=== PATIENT | male | born 1970 | race Caucasian/White ===

== ENCOUNTER 2017-10-29 13:40 | Emergency (ER) | payer OTHER ==
[~2017-10-29] VITALS: Ht 175.3 cm; Wt 77.1 kg
[2017-10-29] MEDS ORDERED: ALLOPURINOL 10100 M1 PO (13:54)
[2017-10-29] MEDS ORDERED: ALPRAZOLAM 0.50.5 M1 PO (13:54)
[2017-10-29] MEDS ORDERED: AUGMENTIN 875-1 EACH PO (14:09)
[2017-10-29] MEDS ORDERED: BACTRIM DS TAB1 EACH PO (14:19)
[2017-10-29 14:44] VITALS: BP 151/93
== END 2017-10-29 14:45 | disposition home or self-care (01) ==
LOC: M.ERS 13:40
DX: S60.512A Abrasion of left hand, initial encounter (principal); S81.851A Open bite, right lower leg, initial encounter; R03.0 Elevated blood-pressure reading, without diagnosis of hypertension; M10.9 Gout, unspecified; Z86.14 Personal history of Methicillin resistant Staphylococcus aureus infection; W55.01XA Bitten by cat, initial encounter; Y93.89 Activity, other specified; Y92.89 Other specified places as the place of occurrence of the external cause; Y99.8 Other external cause status

== ENCOUNTER 2018-01-18 22:24 | Emergency (ER) | payer OTHER ==
[~2018-01-18] VITALS: Ht 175.3 cm; Wt 72.6 kg
[~2018-01-18 22:24] MED LIST: ALLOPURINOL 10100 M1 PO; ALPRAZOLAM 0.50.5 M1 PO; AUGMENTIN 875-1 EACH PO; BACTRIM DS TAB1 EACH PO
[2018-01-18 23:06] LABS: HEMATOCRIT 38.6 % (42.0-52.0); HEMOGLOBIN 12.9 gm/dL (14.0-18.0); MCH 30.6 pg (26.0-34.0); MCHC 33.5 g/dL (28.0-37.0); MCV 91.5 fL (80.0-100.0); MPV 6.8 fl. (7.2-11.1); RBC 4.22 mil/uL (4.50-6.00); RDW-CV 14.3 % (10.5-14.5); WBC 5.5 thou/uL (4.0-11.0)
[2018-01-18 23:18] LABS: CALCIUM 8.7 mg/dL (8.5-10.1); CREATININE 1.3 mg/dL (0.6-1.3); POTASSIUM 3.4 mmol/L (3.5-5.1)
[2018-01-18 23:22] LABS: ALBUMIN 3.3 g/dL (3.4-5.0); SALICYLATE < 2.8 mg/dL (2.8-20.0); TOTAL BILIRUBIN 0.4 mg/dL (<0.1-1.0)
[2018-01-18 23:25] LABS: ACETAMINOPHEN < 2 ug/mL (10-30); ALCOHOL < 10 mg/dL (<10)
[2018-01-19 03:02] LABS: AMP/METHAMP POSITIVE (Negative); BARBITURATES Negative (Negative); BENZODIAZEPINES POSITIVE (Negative); COCAINE Negative (Negative); METHADONE Negative (Negative); OPIATES Negative (Negative); PCP Negative (Negative); THC POSITIVE (Negative)
[2018-01-19 03:05] LABS: URINE BILIRUBIN NEGATIVE (Negative); URINE BLOOD NEGATIVE (Negative); URINE CLARITY CLEAR; URINE COLOR YELLOW; URINE GLUCOSE-RANDOM NEGATIVE (Negative); URINE KETONES NEGATIVE (Negative); URINE LEUKOCYTES NEGATIVE (Negative); URINE NITRITE NEGATIVE (Negative); URINE PROTEIN NEGATIVE (Negative); URINE SPECIFIC GRAVITY >= 1.030 (1.005-1.030)
[2018-01-19 07:16] VITALS: BP 149/90
== END 2018-01-19 07:23 | disposition home or self-care (01) ==
LOC: M.ERS 22:24
PROVIDERS: Personal Emergency Response Attendant
DX: F32.9 Major depressive disorder, single episode, unspecified (principal); F41.9 Anxiety disorder, unspecified; M10.9 Gout, unspecified; Z86.14 Personal history of Methicillin resistant Staphylococcus aureus infection

== ENCOUNTER 2018-04-01 04:37 | Emergency (ER) | payer OTHER ==
[~2018-04-01] VITALS: Ht 175.3 cm; Wt 73.5 kg
[2018-04-01] MEDS ORDERED: MOBIC15 MG PO (06:15)
[2018-04-01] MEDS ORDERED: ULTRAM 50MG TAB50 MG PO (06:15)
[2018-04-01 06:28] VITALS: BP 138/93
== END 2018-04-01 06:31 | disposition home or self-care (01) ==
LOC: M.ERS 04:37
DX: M19.90 Unspecified osteoarthritis, unspecified site (principal); M47.892 Other spondylosis, cervical region; M10.9 Gout, unspecified; F41.9 Anxiety disorder, unspecified

== ENCOUNTER 2018-12-29 11:54 | Emergency (ER) | payer OTHER ==
[~2018-12-29] VITALS: Ht 175.3 cm; Wt 74.8 kg
[~2018-12-29 11:54] MED LIST changes: +MOBIC15 MG PO; +ULTRAM 50MG TAB50 MG PO
[2018-12-29 11:58] VITALS: BP 137/98
[2018-12-29] MEDS ORDERED: TRIMETHOPRIM /P10 M1 OPHTHALMIC (12:10)
== END 2018-12-29 12:13 | disposition home or self-care (01) ==
LOC: M.ERS 11:54
DX: H10.89 Other conjunctivitis (principal); B96.89 Other specified bacterial agents as the cause of diseases classified elsewhere; M10.9 Gout, unspecified; F41.9 Anxiety disorder, unspecified; Z88.1 Allergy status to other antibiotic agents

== ENCOUNTER 2019-01-28 10:18 | Emergency (ER) | payer OTHER ==
[~2019-01-28] VITALS: Ht 175.3 cm; Wt 74.8 kg
[~2019-01-28 10:18] MED LIST changes: +TRIMETHOPRIM /P10 M1 OPHTHALMIC
[2019-01-28 11:42] VITALS: BP 165/112
--- NOTE | 2019-01-31 17:22 | OP ---
[address] [address] OPERATIVE REPORT Name: MAGDA ROSARIO [id number] Admission: 01/28/19 Attend Phys: Discharge: 01/28/19 Date of : 66 Report #: [id number] THIS REPORT FOR: //name// CC: Frederick LEWIS physician/PCP DATE OF SERVICE: 01/28/2019 INDICATIONS: The patient is a 48-year-old gentleman who placed his wedding ring around the penile shaft last evening. He subsequently went to bed, with the ring in place and 5 hours later woke up with a painful swollen penis with marked edema and ecchymosis. The penile ring was not removable in the Emergency Department due to the marked amount of penile edema. After discussing all risks and benefits of therapeutic options, we elected to take him to the operative suite, so that we could remove the ring with a sandra tipped bur. This ring is a Tungsten ring and was too hard for standard ring cutters to remove. PREOPERATIVE DIAGNOSIS: Retained penile foreign body. POSTOPERATIVE DIAGNOSIS: Retained penile foreign body. PROCEDURE: Removal of foreign body from the penis. SURGEON: Brock Porter MD ANESTHESIA: General. COMPLICATIONS: None. ESTIMATED BLOOD LOSS: None. PROCEDURE IN DETAIL: The patient was consented for the above procedure, was given broad spectrum IV antibiotics preoperatively. He was given general anesthetic and placed in the supine position, prepped and draped in the usual sterile fashion over the penis. The patient had a Tungsten ring in the mid portion of the penis with a marked amount of penile edema distal to this with a marked amount of ecchymosis distal to the ring. A Germaine retractor was placed between the ring and the penis and then using a [employer] back drill with a sandra tipped bur, I was able to grind away at this ring until I was able to cut all the way through the ring on one side. This was performed while dripping water on the drill the entire time to keep the temperatures down and with the retractor between the ring and the penis to minimize any trauma to the skin. I was able to cut through one side, but the ring was still so rigid that it would not open even would not bend open even with the assistance of a cast remover, so I was able to flip the ring around and then cut through the other side in a similar fashion until the ring came off of the penis. [place] [address] OPERATIVE REPORT Name: MAGDA ROSARIO ADRIANA [id number] Admission: 01/28/19 Attend Phys: Discharge: 01/28/19 Date of : 66 Report #: [id number] and immediate return to normal color of the distal penis occurred suggestive of ischemia with improved blood flow after removing the constriction. There was a mild amount of abrasion on the dorsum of the penile skin from the procedure, but it was fairly minimal. The patient tolerated the procedure very well. As he was complaining about inability to void we performed a straight catheterization at the end of the case with a 12-Albanian Millan catheter and only drained about 100 mL out of his bladder. Antibiotic ointment was placed on the abrasions and he was awakened and sent to recovery room in stable condition. <ELECTRONICALLY SIGNED> By: Brock Porter MD 01/31/19 1722 [id number] Caroline Porter MD /nt
== END 2019-01-28 11:41 | disposition still patient (30) ==
LOC: M.SUR 10:18 → M.ERS 10:18 → M.SUR 11:41
DX: S30.852A Superficial foreign body of penis, initial encounter (principal); M10.9 Gout, unspecified; F41.9 Anxiety disorder, unspecified; W49.04XA Ring or other jewelry causing external constriction, initial encounter; Y92.89 Other specified places as the place of occurrence of the external cause; Y93.89 Activity, other specified; Y99.8 Other external cause status